=== PATIENT | male | born 1955 | race Caucasian/White ===

== ENCOUNTER → 2025-05-27 07:58 | Outpatient (REF) | payer MEDICARE, SELFPAY | LOC: RCS 07:58 | PROVIDERS: ATTENDING PHYSICIAN Internal Medicine Cardiovascular Disease; FAMILY PHYSICIAN Family Medicine | DX: Z95.3 Presence of xenogenic heart valve (principal); I35.0 Nonrheumatic aortic (valve) stenosis | CPT/HCPCS: 93306 ==